=== PATIENT | male | born 1995 | race American Indian/Alaskan Native ===

== ENCOUNTER 2022-03-24 22:50 | Emergency (ER) | payer BC ==
[~2022-03-24] VITALS: Ht 170.2 cm; Wt 68.2 kg
[2022-03-24 22:56] VITALS: TEMP 98
[2022-03-24] MEDS ORDERED: AMOXICILLIN 8751 TAB PO (23:41)
[2022-03-24 23:45] VITALS: BP 149/92; PULSE 93
== END 2022-03-25 00:02 | disposition home or self-care (01) ==
LOC: COL.ER 22:50
DX: S02.2XXA Fracture of nasal bones, initial encounter for closed fracture (principal); Z23 Encounter for immunization; Z28.310 Unvaccinated for COVID-19; V80.018A Animal-rider injured by fall from or being thrown from other animal in noncollision accident, initial encounter
CPT/HCPCS: J1885